=== PATIENT | male | born 1945 | race Caucasian/White ===

== ENCOUNTER → 2016-10-23 | Outpatient (CLI) | payer OTHER | LOC: BMCIMAGING 15:17 | PROVIDERS: ATTEND Internal Medicine | DX: M79.644 Pain in right finger(s) (principal); M79.645 Pain in left finger(s) ==

== ENCOUNTER 2017-04-04 12:58 | Inpatient (IN) | payer OTHER ==
--- NOTE | 2017-04-04 13:54 | EDPHY ---
HPI/HX/ROS/PE/MDM Narrative: CHIEF COMPLAINT: Loss of consciousness, confusion, chest and back pain secondary to fall HPI: The patient is a 72 y/o male complaining of chest pain, back pain, loss of consciousness, and confusion after falling from a ladder. He was on an extension ladder checking on a crack in his roof when he realized he hadn't set the lock on the extension ladder. The ladder slid down and he fell about 3 to 4 feet off of it onto another part of the roof. His heard his fall and came outside to check on him. He was not responding verbally. She went out onto the roof and found him laying under the ladder. He regained consciousness about a minute or two after the fall but was confused as to where he was and what had happened. Since then he has had chest and back pain rated 6 to 8 out of 10. He denies any other associated symptoms. He takes a single baby aspirin daily but denies any other anticoagulants. REVIEW OF SYSTEMS: Aside from elements discussed in the HPI, a comprehensive 10-point review of systems was reviewed and is negative. PMH: Ankle replacement SOCIAL HISTORY: , at bedside, retired from a [employer] firm PHYSICAL EXAM: General:Patient is alert, in no acute distress. ENT:Eyes are normal to inspection. ENT inspection normal. Neck: Normal inspection. Full range of motion. Respiratory: Diffuse chest wall pain. No respiratory distress. Breath sounds normal bilaterally. Cardiovascular: Regular rate and rhythm. Normal cap refill. Abdomen:The abdomen is nontender to palpation. There are no peritoneal signs. There are normal bowel sounds. Back: Normal to inspection. No tenderness to palpation. Skin: Normal color. No rash. Warm and dry. Extremities: Normal appearance. Full range of motion. Neuro: Oriented x3. Normal motor function. Normal sensory function. ED Course: Study: CT of the head and neck Indication: Fall with loss of consciousness Results: CT scan of the head and neck was obtained. The results of the study are : Subarachnoid hemorrhage The study was read by the radiologist, Dr. Tolbert. I viewed the images myself on the PACS system. Study: CT of the chest Indication: Chest pain following fall Results: CT scan of the chest was obtained. The results of the study are: negative for trauma or acute process The study was read by the radiologist, Dr. Tolbert. I viewed the images myself on the PACS system. 1554: I reassessed the patient and informed her of the results of his workup. Plan for admit based on subarachnoid hemorrhage. 1559: I spoke with the hospitalist service regarding admission for this patient. Dr. Rosario would like trauma consults. I spoke with Dr. Smith regarding this patient. Dr. Rosario will be admitting doctor. MDM: This patient presents after fall from estimated 3 feet, with LOC and confusion that has now resolved. His CTH is positive for IPH and he will need to be admitted for obs and further workup. He has no complaint of abdominal pain or tenderness on exam. He does complain of chest wall pain, but thankfully CT- chest shows no sign of acute trauma. He remained hemodynamically stable throughout his ED stay. - Data Points Imaging Results: Imaging Impressions Cervical Spine CT 04/04/17 14:18 Impression: Small amounts of acute intracranial subarachnoid hemorrhage and/or parenchymal petechial hemorrhage in the superior frontal lobes and extending along the cephalad margin of the corpus callosum, with no subfalcine or infratentorial herniation. UNENHANCED CT SCAN OF THE CERVICAL SPINE Technique: A multidetector unenhanced helical CT scan was obtained from the clivus caudally through the upper thoracic spine, with images reformatted at 1.50 mm increments, and are reviewed in soft tissue, bone, and lung windows. Parasagittal and paracoronal reconstructed images are reviewed on the workstation. The DFOV is 13.5 cm. A dose reduction protocol was used. Findings: The cervical vertebral body heights are maintained. The posterior alignment is notable for 2 mm of C4 posterolisthesis of C5, likely degenerative in etiology. There are ventral and dorsal traction osteophytes from C4 to C6 with moderate to severe degenerative disk space narrowing at the C4-C5 and C5- C6 levels, and mild to moderate disk space narrowing at C6-C7. There is no acute fracture, or facet malalignment. The interspinous distances are normal. There is partial ossification of the nuchal ligament at the posterior C3-C4 level. The craniocervical junction is normal. The predental space, and the atlantoaxial lateral mass alignment is normal. The base and the tip of the dens are normal. There is a sclerotic bone island seen along the anterior margin of C2. There is no paravertebral or epidural hematoma identified. The prevertebral soft tissues are normal, as are the lung apices. The C1-C2 level is within normal limits. At C2-C3 level, there is severe right-sided facet hypertrophy and a very mild degree of right neural foraminal narrowing. There is no significant central canal or left neural foraminal stenosis. At the C3-C4 level, there is severe right and mild left-sided facet hypertrophy. Uncovertebral degenerative spondylosis results in severe right and moderate left neural foraminal stenosis; there is a mild degree of right lateral recess narrowing. The central canal remains patent. At the C4-C5 level, there is moderate to severe severe degenerative disk space narrowing with ventral and dorsal traction osteophytes. There is moderate-to- severe central canal stenosis with an AP canal diameter of 8 mm. There is severe bilateral neural foraminal stenosis, right greater than left and also accompanying bilateral lateral recess narrowing. At the C5-C6 level there is aqnyvofq-kp-ewxwie degenerative disk space narrowing. Moderate bilateral facet hypertrophy is seen with prominent bilateral uncovertebral degenerative osteophytes resulting in severe bilateral neural foraminal stenoses, bilateral lateral recess narrowing, and a moderate to severe degree of central canal stenosis narrowing the diameter to 7.5 mm. At the C6-C7 level, there is mild degenerative disk space narrowing and mild bilateral facet hypertrophy with uncovertebral degenerative spondylosis resulting in moderate right and severe left neural foraminal stenosis. There is a mild degree of central canal stenosis. The C7-T1 level is within normal limits. Impression: 1. There is no acute cervical osseous abdomen identified. 2. Multilevel degenerative changes, most pronounced from C3-C4 through C6-C7, as above-detailed. If there is further clinical concern regarding the patient's symptoms, correlative MR imaging could be considered, if otherwise not contraindicated. Findings were discussed with Rupert Braga MD at 15:29, on 04/04/2017. Chest CT 04/04/17 14:18 Impression: 1. Old healed left posterior second through sixth rib fracture deformities, with no acute rib fracture. 2. Minor dependent subsegmental atelectatic changes, with no obey pulmonary contusion or evidence of pneumothorax. 3. LAD coronary atherosclerotic calcification. Findings were discussed with Rupert Braga MD at 15:51, on 04/04/2017. Head CT 04/04/17 14:18 Impression: Small amounts of acute intracranial subarachnoid hemorrhage and/or parenchymal petechial hemorrhage in the superior frontal lobes and extending along the cephalad margin of the corpus callosum, with no subfalcine or infratentorial herniation. UNENHANCED CT SCAN OF THE CERVICAL SPINE Technique: A multidetector unenhanced helical CT scan was obtained from the clivus caudally through the upper thoracic spine, with images reformatted at 1.50 mm increments, and are reviewed in soft tissue, bone, and lung windows. Parasagittal and paracoronal reconstructed images are reviewed on the workstation. The DFOV is 13.5 cm. A dose reduction protocol was used. Findings: The cervical vertebral body heights are maintained. The posterior alignment is notable for 2 mm of C4 posterolisthesis of C5, likely degenerative in etiology. There are ventral and dorsal traction osteophytes from C4 to C6 with moderate to severe degenerative disk space narrowing at the C4-C5 and C5- C6 levels, and mild to moderate disk space narrowing at C6-C7. There is no acute fracture, or facet malalignment. The interspinous distances are normal. There is partial ossification of the nuchal ligament at the posterior C3-C4 level. The craniocervical junction is normal. The predental space, and the atlantoaxial lateral mass alignment is normal. The base and the tip of the dens are normal. There is a sclerotic bone island seen along the anterior margin of C2. There is no paravertebral or epidural hematoma identified. The prevertebral soft tissues are normal, as are the lung apices. The C1-C2 level is within normal limits. At C2-C3 level, there is severe right-sided facet hypertrophy and a very mild degree of right neural foraminal narrowing. There is no significant central canal or left neural foraminal stenosis. At the C3-C4 level, there is severe right and mild left-sided facet hypertrophy. Uncovertebral degenerative spondylosis results in severe right and moderate left neural foraminal stenosis; there is a mild degree of right lateral recess narrowing. The central canal remains patent. At the C4-C5 level, there is moderate to severe severe degenerative disk space narrowing with ventral and dorsal traction osteophytes. There is moderate-to- severe central canal stenosis with an AP canal diameter of 8 mm. There is severe bilateral neural foraminal stenosis, right greater than left and also accompanying bilateral lateral recess narrowing. At the C5-C6 level there is hgawojqt-oj-uiejsq degenerative disk space narrowing. Moderate bilateral facet hypertrophy is seen with prominent bilateral uncovertebral degenerative osteophytes resulting in severe bilateral neural foraminal stenoses, bilateral lateral recess narrowing, and a moderate to severe degree of central canal stenosis narrowing the diameter to 7.5 mm. At the C6-C7 level, there is mild degenerative disk space narrowing and mild bilateral facet hypertrophy with uncovertebral degenerative spondylosis resulting in moderate right and severe left neural foraminal stenosis. There is a mild degree of central canal stenosis. The C7-T1 level is within normal limits. Impression: 1. There is no acute cervical osseous abdomen identified. 2. Multilevel degenerative changes, most pronounced from C3-C4 through C6-C7, as above-detailed. If there is further clinical concern regarding the patient's symptoms, correlative MR imaging could be considered, if otherwise not contraindicated. Findings were discussed with Rupert Braga MD at 15:29, on 04/04/2017. Laboratory Results: Laboratory Results 04/04/17 14:28 04/04/17 14:28 04/04/17 04/04/17 04/04/17 14:28 14:28 14:26 WBC 10.74 10^3/uL H 10^3/uL (3.80-9.50) RBC 5.40 10^6/uL 10^6/uL (4.40-6.38) Hgb 17.1 g/dL g/dL (13.7-17.5) POC Hgb 17.3 gm/dL gm/dL (13.7-17.5) Hct 49.5 % % (40.0-51.0) POC Hct 51 % % (40-51) MCV 91.7 fL fL (81.5-99.8) MCH 31.7 pg pg (27.9-34.1) MCHC 34.5 g/dL g/dL (32.4-36.7) RDW 12.8 % % (11.5-15.2) Plt Count 180 10^3/uL 10^3/uL (150-400) MPV 9.2 fL fL (8.7-11.7) Neut % (Auto) 82.6 % H % (39.3-74.2) Lymph % (Auto) 8.4 % L % (15.0-45.0) Schuyler % (Auto) 7.1 % % (4.5-13.0) Eos % (Auto) 0.7 % % (0.6-7.6) Baso % (Auto) 0.5 % % (0.3-1.7) Nucleat RBC Rel Count 0.0 % % (0.0-0.2) Absolute Neuts (auto) 8.88 10^3/uL H 10^3/uL (1.70-6.50) Absolute Lymphs (auto) 0.90 10^3/uL L 10^3/uL (1.00-3.00) Absolute Monos (auto) 0.76 10^3/uL 10^3/uL (0.30-0.80) Absolute Eos (auto) 0.08 10^3/uL 10^3/uL (0.03-0.40) Absolute Basos (auto) 0.05 10^3/uL 10^3/uL (0.02-0.10) Absolute Nucleated RBC 0.00 10^3/uL 10^3/uL (0-0.01) Immature Gran % 0.7 % % (0.0-1.1) Immature Gran # 0.07 10^3/uL 10^3/uL (0.00-0.10) POC Sodium 144 mEq/L mEq/L (134-144) Sodium 143 mEq/L mEq/L (134-144) POC Potassium 4.3 mEq/L mEq/L (3.3-5.0) Potassium 4.7 mEq/L mEq/L (3.5-5.2) POC Chloride 105 mEq/L mEq/L (97-110) Chloride 108 mEq/L mEq/L (97-110) Carbon Dioxide 26 mEq/l mEq/l (22-31) Anion Gap 9 mEq/L mEq/L (8-16) POC BUN 19 mg/dL mg/dL (7-23) BUN 18 mg/dL mg/dL (7-23) Creatinine 1.0 mg/dL mg/dL (0.7-1.3) POC Creatinine 1.1 mg/dL mg/dL (0.7-1.3) Estimated GFR > 60 Glucose 97 mg/dL mg/dL (70-100) POC Glucose 102 mg/dL H mg/dL (70-100) Calcium 9.5 mg/dL mg/dL (8.5-10.4) Troponin I < 0.012 ng/mL ng/mL (0.000-0.034) Medications Given: Discontinued Medications Ketorolac Tromethamine (Toradol) 15 mg IVP EDNOW ONE Stop: 04/04/17 14:43 Last Admin: 04/04/17 14:47 Dose: 15 mg Point of Care Test Results: 04/04/17 14:26 POC Sodium 144 POC Potassium 4.3 POC Chloride 105 POC BUN 19 POC Creatinine 1.1 POC Glucose 102 H General Time Seen by Provider: 04/04/17 13:34 Initial Vital Signs: Initial Vital Signs Temperature (C) 36.7 C 04/04/17 12:59 Heart Rate 62 04/04/17 12:59 Respiratory Rate 16 04/04/17 12:59 Blood Pressure 146/91 H 04/04/17 12:59 O2 Sat (%) 96 04/04/17 12:59 O2 Delivery Mode Room Air Allergies/Adverse Reactions: No Known Allergies Allergy (Verified 04/04/17 12:59) Home Medications: Medication Instructions Recorded Atorvastatin Calcium [Lipitor 10 10 mg PO DAILY 12/02/11 mg (*)] Herbals/Supplements -Info Only 1 ea PO DAILY 04/04/17 Tadalafil [Cialis] 5 mg PO PRN PRN 04/04/17 Acetaminophen [Tylenol 325mg (*)] 650 mg PO Q4HRS PRN tab 04/05/17 Hydrocodone/APAP 5/325 [Mims 1 tab PO Q4HRS PRN #20 tab 04/05/17 5/325 (*)] Departure - Departure Disposition: [facility] Inpatient Acute Clinical Impression: Subarachnoid hemorrhage Condition: Good Report Scribed for: Rupert Braga Report Scribed by: Laverne Ley Date of Report: 04/04/17 Time of Report: 13:54 Physician Review and Approval Statement: Portions of this note were transcribed by an ED scribe. I personally performed the history, physical exam, and medical decision making; and confirm the accuracy of the information in the transcribed note.
--- NOTE | 2017-04-04 14:28 | CPEKG ---
Heart Rate: 59 RR Interval: 1017 P-R Interval: 152 QRSD Interval: 82 QT Interval: 400 QTC Interval: 397 P Orange: 60 QRS Orange: 42 T Wave Orange: -14 EKG Severity - ABNORMAL ECG - EKG Impression: PACEMAKER SPIKES OR ARTIFACTS EKG Impression: SINUS RHYTHM EKG Impression: LEFT ATRIAL ABNORMALITY EKG Impression: BORDERLINE T ABNORMALITIES, INFERIOR LEADS Electronically Signed By: Rupert Braga 05-Apr-2017 21:51:02
[2017-04-04] MEDS ORDERED: IOPAMIDOL (ISOVUE-300) 100 ML BTL ONE (14:38)
[2017-04-04 14:40] LABS: % IMMATURE GRANULYOCYTES 0.7 % (0.0-1.1); ABSOLUTE IMMATURE GRANULOCYTES 0.07 10^3/uL (0.00-0.10); ADD DIFF? NO; ADD MORPH? NO; ADD SCAN? NO; ATYPICAL LYMPHOCYTE FLAG 0 (0-99); FRAGMENT RBC FLAG 0 (0-99); HEMATOCRIT 49.5 % (40.0-51.0); HEMOGLOBIN 17.1 g/dL (13.7-17.5); LEFT SHIFT FLG 0 (0-99); LIPEMIA HEMOLYSIS FLAG 90 (0-99); MEAN CELL HEMOGLOBIN 31.7 pg (27.9-34.1); MEAN CELL HEMOGLOBIN CONCENTR. 34.5 g/dL (32.4-36.7); MEAN CELL VOLUME 91.7 fL (81.5-99.8); MEAN PLATELET VOLUME 9.2 fL (8.7-11.7); PLATELET CLUMPS FLAG 10 (0-99); PLATELET COUNT 180 10^3/uL (150-400); RED CELL DISTRIBUTION WIDTH 12.8 % (11.5-15.2)
[2017-04-04] MEDS ORDERED: KETOROLAC 30 MG/1 ML SDV IVP ONE (14:42)
[2017-04-04 15:01] LABS: ANION GAP 9 mEq/L (8-16); CALCIUM 9.5 mg/dL (8.5-10.4); CARBON DIOXIDE 26 mEq/l (22-31); CHLORIDE 108 mEq/L (97-110); GLOMERULAR FILTRATION RATE > 60; GLUCOSE 97 mg/dL (70-100); POTASSIUM 4.7 mEq/L (3.5-5.2); SODIUM 143 mEq/L (134-144)
[2017-04-04 15:12] LABS: TROPONIN I < 0.012 ng/mL (0.000-0.034)
[2017-04-04] MEDS ORDERED: NS 1,000 ML IV SCH ×2 (16:30→17:15)
[2017-04-04] MEDS ORDERED: NS 1,000 ML IV ONE (16:37)
[2017-04-04] MEDS ORDERED: ACETAMINOPHEN 325 MG TAB PO PRN (17:13)
[2017-04-04] MEDS ORDERED: ONDANSETRON 4 MG/2 ML VIAL IVP PRN (17:17)
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
[2017-04-04] MEDS: HYDROCODONE/APAP 5/325 TAB PO PRN (17:49)
--- NOTE | 2017-04-04 19:20 | GHP ---
[f rep st] HISTORY AND PHYSICAL DATE OF ADMISSION: 04/04/2017 CONSULTING SERVICE: Emergency Medicine CHIEF COMPLAINT: Fall from a ladder with some with some traumatic subarachnoid hemorrhage. HISTORY OF PRESENT ILLNESS: The patient is a 72-year-old male who has been in good health, who takes a baby aspirin a day for general wellness, who was climbing a ladder from a from one room to another . Once he got on the ladder he realized it was not locked, and it did collapse. He fell from critical access hospital about 3 feet and the surface he struck was made of rubberized membrane over plywood. He did have an LOC for approximately a minute or so that his , who witnessed. He was complaining of ch est and back pain, and was brought to the hospital by ambulance. After his trauma scans were perform ed, he was only found to have some scattered traumatic subarachnoid hemorrhage in the interhemispheri c fissure and frontal sulci. Trauma cleared him and he will be admitted to neurosurgery. PAST MEDICAL AND SURGICAL HISTORY: Appendectomy, ORIF of his left ankle in 1988 that was revised in 2016. Transient hepatitis from anesthesia. ALLERGIES: No known drug allergies. CODE STATUS: Full. MEDICATIONS: Lipitor, aspirin 81, Cialis, vitamin D, CoQ 10, turmeric, lutein. SOCIAL HISTORY: Denies smoking. Drinks a glass or 2 of wine at night. Denies illicit drugs. FAMILY HISTORY: This is a trauma so it is noncontributory, but he has no knowledge of head trauma in his family. REVIEW OF SYSTEMS: A 10-point review of systems is performed and is negative other than stated in HP I. PHYSICAL EXAM: VITAL SIGNS: Afebrile at 36.7, blood pressure 127/80, heart rate 62, respiratory rat e 18, saturating 96% on room air. GENERAL: The patient is awake, alert, oriented x3. Appears state d age. He is in no acute distress. NEUROLOGIC: He has normal fluent speech. He has normal cranial nerves. He has 5/5 in all muscle groups, upper and lower extremities. He has normal sensory exam t o light touch and pinprick. He has no abnormal reflexes. He has a negative Hilton's and normal DTR s. He has no cerebellar findings review. LABORATORY: White blood cell count 10.74, hemoglobin 17.1, platelets 180. Sodium 143, potassium 4.7 . BUN and hematocrit 18 and 1. Glucose 97. Troponin less than 0.012. IMAGING: I reviewed the patient's CT of the cervical spine and agree. There are no signs of traumat ic fracture. I reviewed the patient's head CT and agree with some frontal sulcal traumatic subarachnoid hemorrhage , and some traumatic subarachnoid hemorrhage in the interhemispheric fissure as well. IMPRESSION AND PLAN: The patient is a pleasant 72-year-old male who is healthy, on a baby aspirin a day, who had a fall off a ladder earlier at his home with positive loss of consciousness. He was bro ught into the emergency room, where he was found to be back to his neurologic baseline. He has a nor mal exam. He has a head CT with some traumatic subarachnoid hemorrhage in the frontal sulci and inte rhemispheric fissure, but is not concerning to me. This is an isolated neuro trauma. I have admitte d him to the step-down for observation. I do not even plan to rescan his head. Rather, I would just follow his neurologic status. He does not need Keppra. We will hold his aspirin for 5 days. He ca n have a diet. Tomorrow if he is in good condition, we will discharge him home, with followup to be determined at that time. /[id number]/MODL
[2017-04-05] MEDS: HYDROCODONE/APAP 5/325 TAB PO PRN ×2 (03:13→08:43)
--- NOTE | 2017-04-05 07:07 | NEUSURGPN ---
Assessment/Plan: Assessment: 72 yo male that is s/p fall from ladder with LOC and TSAH Plan: -s/p fall: pt doing well this am and is awake and alert. He recalls event and recent events as well -minimal SMART at this time -PT/OT/ST pending and then if clears we will dc later this am -reviewed CT of head from yesterday -no further CTs needed -stay off ASA for now-can restart in 5 days -no keppra needed per Dr Rosario -warning signs given -call with any questions or concerns -pt understands and agrees -d/w Dr Rosario Subjective: Awake and alert. NAD. Eating/drinking and voiding. No f/c/n/v/d. No neck/ chest/abd or gu complaints. No UE/LE complaints Objective: AAO x 3, PERRLA/EOMI no droop CN 2-12 grossly intact +lt touch 5/5 BUE/BLE = Neuro Check Frequency: per routine Urinary Catheter in Place: No - Physician Discussed Patient with Dr.: Rosario Patient Seen by : [facility] Neurosurgery Physical Exam - Vitals, I&O, Labs I and O 04/04/17 04/05/17 04/06/17 05:59 05:59 05:59 Intake Total 600 Output Total 300 Balance 300 Weight 78.018 kg Intake: Oral (ml) 500 IV Infused (ml) 100 Output: Urine (ml) 300 Other: Intake Quantity Yes Sufficient Number of Voids 1 Toilet 2 Vital Signs Temp Pulse Resp BP Pulse Ox 37.3 C 71 12 129/74 H 94 04/05/17 04:00 04/05/17 04:00 04/05/17 04:00 04/05/17 04:00 04/05/17 04:00 ICD10 Worksheet Patient Problems: Problems Problem Status Onset Subarachnoid hemorrhage Acute
[2017-04-05 07:46] VITALS: BP 127/79; PULSE 81; RESP 17; O2SAT 93
[2017-04-05 08:09] VITALS: TEMP 99.2
[2017-04-05] MEDS ORDERED: FLU VACC QS 2017-18 (3YR+)/PF 0.5 ML SYR (FLUARIX QUAD) IM ONE ×2 (08:58→09:05)
[2017-04-05] MEDS ORDERED: ATORVASTATIN CALCIUM 10 MG TAB PO SCH (09:00)
--- NOTE | 2017-04-05 09:58 | SOAPPROG ---
SOAP Progress Note Assessment/Plan: Assessment: tertiary survey: alert, vs stable/ no new problems, afebrile neuro stable, symmetric, oriented, alert chest clear and symmetric/ cor rr/ abd soft, nontender/ extrem minor abrasions Plan:probably home per NS 04/05/17 09:55 Objective: Vital Signs Temp Pulse Resp BP Pulse Ox 37.3 C 81 17 127/79 H 93 04/05/17 07:42 04/05/17 07:42 04/05/17 07:42 04/05/17 07:42 04/05/17 07:42 04/04/17 04/05/17 04/06/17 05:59 05:59 05:59 Intake Total 600 Output Total 300 Balance 300 ICD10 Worksheet Patient Problems: Problems Problem Status Onset Subarachnoid hemorrhage Acute
--- NOTE | 2017-04-05 15:04 | ASDISCHSUM ---
Discharge Information Plan Status:Home with No Needs Medically Cleared to Leave:04/04/2017 Discharge Date:04/05/2017 10:50 AM CM D/C Disposition:Home, Routine, Self-Care ADT D/C Disposition:Home, Routine, Self-Care Projected Discharge Date:04/05/2017 11:00 AM Transportation at D/C: Discharge Delay Reason: Follow-Up Date:04/05/2017 11:00 AM Discharge Slot: Final Diagnosis:Fall-SAH Placement Information Patient Contact Information Contact Name:CHELAERICAEvita Relationship: Address:[address] [place] Alternate Phone: [facility]/Zip Code:[place] [address] Email: Financial Information Financial Class: Primary Plan Desc:MEDICARE INPATIENT Primary Plan Number:[id number] Secondary Plan Desc:GABRIEL Secondary Plan Number:[id number] Assessment Information Case Management Discharge Plan Note Case Management Discharge Discharge Order Complete? Answers: Yes Patient to Obtain Answers: via Family Medications Transportation Arranged Answers: Family/Friends Transport will Pick (Date 04/05/2017 11:30 AM & Time) Discharge Comments Notes: 72 year old male admitted after a fall from a ladder hitting his head-SAH. Was discharged today after CT Scan and back to baseline. TRansported home by family. No discharge needs noted. Date Signed: 04/05/2017 03:03 PM Electronically Signed By:Lisa Pereira LCSW Intervention Information Intervention Type:*Incorrect Registration Date of Service:04/05/2017 09:49 AM Patient Type:Inpatient Staff Member:VIRAL Bazzi Courtney Hours: Discipline: Severity: Comment:
== END 2017-04-05 10:50 | disposition home or self-care (01) | DRG 87 ==
LOC: OBSVTOIN 17:15 → F2N 17:44
PROVIDERS: ADMIT Neurological Surgery; ATTEND Neurological Surgery
DX: S06.5X1A Traumatic subdural hemorrhage with loss of consciousness of 30 minutes or less, initial encounter (principal); W11.XXXA Fall on and from ladder, initial encounter; Y93.H9 Activity, other involving exterior property and land maintenance, building and construction; Y92.018 Other place in single-family (private) house as the place of occurrence of the external cause; E83.119 Hemochromatosis, unspecified; Z79.82 Long term (current) use of aspirin
CPT/HCPCS: 82947-QW; 96374; 97161-GP; 97165-GO; G0008; G8978-GP-CH; G8979-GP-CH; G8980-GP-CH; G8987-GO-CI; G8988-GO-CI; G8989-GO-CI; J1885; Q9967